=== PATIENT | female | born 1980 | race Caucasian/White ===

== ENCOUNTER → 2017-10-16 | Outpatient (CLI) | payer BC | END | disposition home or self-care (01) | LOC: LABWHC1 07:01 | PROVIDERS: ATTEND Otolaryngology | DX: J30.89 Other allergic rhinitis (principal) | CPT/HCPCS: 36415 ==

== ENCOUNTER → 2018-05-16 | Outpatient (CLI) | payer BC ==
--- NOTE | 2018-05-18 07:53 | MM ---
Reason for exam: screening (asymptomatic). Last mammogram was performed 2 years and 1 month ago. History: Patient is nulliparous. Took hormonal contraceptives for 5 years. Taking other hormone for 2 years. Physical Findings: A clinical breast exam by your physician is recommended on an annual basis and results should be correlated with mammographic findings. MG 3D Screening Mammo W/Cad Bilateral CC and MLO view(s) were taken. Prior study comparison: April 18, 2016, bilateral MG 3d screening mammo w/cad. April 15, 2015, bilateral MG screening mammo w CAD. The breast tissue is heterogeneously dense. This may lower the sensitivity of mammography. No suspicious abnormality. No significant changes when compared with prior studies. ASSESSMENT: Negative, BI-RAD 1 RECOMMENDATION: Routine screening mammogram of both breasts in 1 year.
== END | disposition home or self-care (01) ==
LOC: RADMAMWWP 06:55
PROVIDERS: ATTEND Obstetrics & Gynecology
DX: Z12.31 Encounter for screening mammogram for malignant neoplasm of breast (principal)
CPT/HCPCS: 77063; 77067

== ENCOUNTER 2018-07-24 06:55 | Day surgery (SDC) | payer BC ==
[2018-07-18 11:57] VITALS: BMI 21.2
--- NOTE | 2018-07-23 19:51 | P.HPOB ---
History of Present Illness H&P Date: 07/23/18 Chief Complaint: LAINE-2 This is a 38-year-old female 3 para 0 who presents for loop electrocautery excision procedure with colposcopy due to LAINE 2 found on colposcopy on 07/03/2018. Her last Pap smear in May 2018 was read as atypical squamous cells of undetermined significance with positive high risk HPV. She underwent colposcopy on 07/03/2018 and which pathology showed benign endocervical curettings and LAINE-2 on biopsy at 12:00. In light of these findings, the decision is made to proceed with loop electrocautery excision procedure with colposcopy. Gynecologic history: She denies any history of sexual transmitted diseases. She has been with the same partner for just over a year. She is currently on oral contraceptives for control. Obstetrical history: History of 3 miscarriages. Social history: She is . She works in accounting. Review of Systems Constitutional: Denies chills, Denies fever Eyes: denies blurred vision, denies pain Ears, nose, mouth and throat: Denies headache, Denies sore throat Cardiovascular: Denies chest pain, Denies shortness of breath Respiratory: Denies cough Gastrointestinal: Denies abdominal pain, Denies diarrhea, Denies nausea, Denies vomiting Genitourinary: Reports dysmenorrhea Menstruation: Reports menses variable Musculoskeletal: Reports low back pain Integumentary: Denies pruritus, Denies rash Neurological: Denies numbness, Denies weakness Psychiatric: Denies anxiety, Denies depression Endocrine: Denies fatigue, Denies weight change Past Medical History Past Medical History: Asthma, Hypertension Additional Past Medical History / Comment(s): Endometriosis History of Any Multi-Drug Resistant Organisms: None Reported Additional Past Surgical History / Comment(s): D&C; laparoscopy with left tubal repair and ablation of right endometriosis Past Anesthesia/Blood Transfusion Reactions: No Reported Reaction Past Psychological History: No Psychological Hx Reported Smoking Status: Never smoker Past Alcohol Use History: Occasional Past Drug Use History: None Reported - Past Family History Mother Additional Family Medical History / Comment(s): Stroke at age 55 Medications and Allergies Home Medications Medication Instructions Recorded Confirmed Type Losartan [Cozaar] 25 mg PO HS 07/18/18 07/18/18 History Montelukast [Singulair] 10 mg PO DAILY 07/18/18 07/18/18 History Norethindrone-E.estradiol-Iron 1 each PO DAILY 07/18/18 07/18/18 History [ Fe 24 Tablet] Allergies Allergy/AdvReac Type Severity Reaction Status Date / Time No Known Allergies Allergy Verified 07/18/18 11:41 Exam Osteopathic Statement: *. No significant issues noted on an osteopathic structural exam other than those noted in the History and Physical/Consult. HEENT: Within normal limits Heart: Regular rate and rhythm Lungs: Clear to auscultation bilaterally Abdomen: Soft, nontender Pelvic exam: Uterus is anteverted, nontender, with no adnexal masses or tenderness noted. Extremities: Negative Homans Assessment and Plan (1) LAINE II (cervical intraepithelial neoplasia II) Status: Acute Code(s): N87.1 - MODERATE CERVICAL DYSPLASIA SNOMED Code(s): 410691876 Plan: Proceed with loop electrocautery excision procedure with colposcopy. I have discussed the risks, benefits, and alternative therapies for the above- mentioned procedure and for both sedation/anesthesia as well as necessary blood products administration, if indicated, as they pertain to this patient. The patient has indicated her understanding and acceptance of the risks and procedures discussed.
[~2018-07-24 06:55] MED LIST: DEXAMETHASONE SOD PHOSPHATE 10 MG/ML 1 ML VIAL IV ONE; HYDROmorphone 0.5 MG/0.5 ML SYRINGE IVP PRN; LACTATED RINGERS 1,000 ML IV SCH; ONDANSETRON 4 MG/2 ML VIAL IVP ONE; Pre Op ABX Message 1 EACH MISC MISCELLANE ONE
[2018-07-24] MEDS ORDERED: LIDOCAINE 1% 20 ML VIAL (10MG/ML) FOR IV START INTRADERMA ONE (07:27)
[2018-07-24] MEDS ORDERED: LIDOCAINE 1% INJ 10MG/ML (20 ML MDV) ONE (08:11)
[2018-07-24] MEDS ORDERED: fentaNYL (PF) 50 MCG/ML 2 ML AMP ONE (08:11)
[2018-07-24] MEDS ORDERED: PROPOFOL 10 MG/ML 20 ML VIAL IV ONE (08:11)
[2018-07-24] MEDS ORDERED: MIDAZOLAM 2 MG/2 ML VIAL ONE (08:11)
[2018-07-24] MEDS ORDERED: FERRIC SUBSULFATE (MONSELS) JAR TOPICAL ONE (08:36)
[2018-07-24] MEDS ORDERED: BUPIVACAINE (PF) 0.5% 30 ML VIAL SQ ONE (08:36)
[2018-07-24] MEDS ORDERED: LIDOCAINE 1%-EPI 1:100,000 20 ML VIAL SQ ONE (08:36)
[2018-07-24] MEDS ORDERED: ACETIC ACID 15 DROPS/ML DROPS MISCELLANE ONE (08:36)
--- NOTE | 2018-07-24 08:50 | P.OP ---
Date of Procedure: 07/24/18 Preoperative Diagnosis: LAINE-2 Postoperative Diagnosis: Cervical dysplasia Procedure(s) Performed: Colposcopy with loop electrocautery excision procedure Anesthesia: other (LMA general) Surgeon: Flores Greene Estimated Blood Loss (ml): 10 Pathology: other (Ectocervix with 12 o'clock position marked with a black suture and 6 o'clock position marked with a white suture, endocervix is separate piece) Condition: stable Disposition: same day Indications for Procedure: This is a 38-year-old female 3 para 0 who presents for loop electrocautery excision procedure with colposcopy due to LAINE 2 found on colposcopy on 07/03/2018. Her last Pap smear in May 2018 was read as atypical squamous cells of undetermined significance with positive high risk HPV. She underwent colposcopy on 07/03/2018 and which pathology showed benign endocervical curettings and LAINE-2 on biopsy at 12:00. In light of these findings, the decision is made to proceed with loop electrocautery excision procedure with colposcopy. Operative Findings: Colposcopy is performed using a blue light and no specific abnormalities are visualized with either acetic acid or Lugol solution. Transition zone is seen entirely. Description of Procedure: The patient is taken to the operating room where she is placed in the dorsal lithotomy position. She is prepped and draped in the normal sterile fashion. Her bladder is drained with a catheter and then removed. Examination is performed under anesthesia. Uterus is found to be small, anteverted, with no adnexal masses noted. Next a bivalve coated speculum was placed in the patient's vagina. Colposcopy is then performed using a blue light. The cervix is swabbed with acetic acid. No abnormalities are visualized. Next the cervix is swabbed with Lugol solution. No abnormalities are noted. Transition zone is seen entirely. Next a spinal needle was used to inject a 50-50 mixture of 1% lidocaine with epinephrine and half percent Marcaine. Approximately 7 mL are injected using a spinal needle circumferentially around the cervix. Next the large loop was used with 35 W of cutting power to swipe from left to right to remove the upper border of the transition zone. The same procedure is used to swipe from left to right removing the lower border. Next a small loop was used to remove the endocervix. Next a ball-tipped cautery was used to cauterize the bed left behind. Excellent hemostasis was noted. Next the cervix is swabbed with Monsel solution for hemostasis. The 12:00 ectocervix piece is marked with a black suture and then the 6:00 piece is marked with a white suture. The endocervix is not marked. All sponge and needle counts are correct. The patient is then taken to recovery room in stable condition.
[2018-07-24 08:58] VITALS: TEMP 98.1
[2018-07-24 09:03] VITALS: RESP 16
[2018-07-24 10:20] VITALS: BP 123/85; PULSE 75
== END 2018-07-24 10:47 | disposition home or self-care (01) ==
LOC: OR 06:55
PROVIDERS: ATTEND Obstetrics & Gynecology
DX: N87.1 Moderate cervical dysplasia (principal); J45.909 Unspecified asthma, uncomplicated; Z79.51 Long term (current) use of inhaled steroids; Z79.899 Other long term (current) drug therapy; Z79.890 Hormone replacement therapy
CPT/HCPCS: 81025; 88307; 57460; J2250; J1100; J2405; J2001; J3010; J2704

== ENCOUNTER → 2019-06-27 | Outpatient (CLI) | payer OTHER ==
--- NOTE | 2019-06-27 14:39 | MM ---
Reason for exam: screening (asymptomatic). Last mammogram was performed 1 year and 1 month ago. History: Patient is nulliparous. Took hormonal contraceptives for 5 years. Taking other hormone for 2 years. Physical Findings: A clinical breast exam by your physician is recommended on an annual basis and results should be correlated with mammographic findings. MG 3D Screening Mammo W/Cad Bilateral CC and MLO view(s) were taken. Prior study comparison: May 16, 2018, bilateral MG 3d screening mammo w/cad. April 18, 2016, bilateral MG 3d screening mammo w/cad. The breast tissue is heterogeneously dense. This may lower the sensitivity of mammography. New nodular density inner right CC view 6.4cm from nipple. This finding is changed when compared with previous exams. ASSESSMENT: Incomplete: need additional imaging evaluation, BI-RAD 0 RECOMMENDATION: Special view mammogram of the right breast. If lesion persists on supplemental views, image directed ultrasound is recommended. [facility] will attempt to contact patient to return for supplemental views and ultrasound if indicated.
== END ==
LOC: RADMAMWWP 06:56
PROVIDERS: ATTEND Obstetrics & Gynecology
DX: Z12.31 Encounter for screening mammogram for malignant neoplasm of breast (principal)
CPT/HCPCS: 77063; 77067

== ENCOUNTER → 2019-07-05 | Outpatient (CLI) | payer OTHER ==
--- NOTE | 2019-07-05 10:00 | MM ---
Reason for exam: additional evaluation requested from abnormal screening. Last mammogram was performed less than 1 month ago. History: Patient is nulliparous. Taking hormonal contraceptives for 6 years. Taking other hormone for 2 years. Physical Findings: Nurse did not find any significant physical abnormalities on exam. MG 3D Work Up W/Cad RT Spot compression CC, spot compression MLO, and ML view(s) were taken of the right breast. Prior study comparison: June 27, 2019, bilateral MG 3d screening mammo w/cad. May 16, 2018, bilateral MG 3d screening mammo w/cad. The breast tissue is heterogeneously dense. This may lower the sensitivity of mammography. There is no discrete abnormality including area of concern medial CC. No significant new findings when compared with previous films. These results were verbally communicated with the patient and result sheet given to the patient on 07/05/19. ASSESSMENT: Benign, BI-RAD 2 RECOMMENDATION: Routine screening mammogram of both breasts.
== END | disposition home or self-care (01) ==
LOC: RADMAMWWP 08:39
PROVIDERS: ATTEND Obstetrics & Gynecology
DX: R92.8 Other abnormal and inconclusive findings on diagnostic imaging of breast (principal)
CPT/HCPCS: 77061; 77065

== ENCOUNTER → 2020-09-18 | Outpatient (CLI) | payer OTHER ==
--- NOTE | 2020-09-21 11:16 | MM ---
Reason for exam: screening (asymptomatic). Last mammogram was performed 1 year and 2 months ago. History: Patient is nulliparous. Taking hormonal contraceptives for 6 years. Taking other hormone for 2 years. Physical Findings: A clinical breast exam by your physician is recommended on an annual basis and results should be correlated with mammographic findings. MG 3D Screening Mammo W/Cad Bilateral CC and MLO view(s) were taken. Prior study comparison: July 05, 2019, right breast MG 3d work up w/cad RT. June 27, 2019, bilateral MG 3d screening mammo w/cad. The breast tissue is heterogeneously dense. This may lower the sensitivity of mammography. There is no discrete abnormality. No significant changes when compared with prior studies. ASSESSMENT: Negative, BI-RAD 1 RECOMMENDATION: Routine screening mammogram of both breasts in 1 year.
== END | disposition home or self-care (01) ==
LOC: RADMAMWWP 09:02
PROVIDERS: ATTEND Obstetrics & Gynecology
DX: Z12.31 Encounter for screening mammogram for malignant neoplasm of breast (principal)
CPT/HCPCS: 77063; 77067

== ENCOUNTER → 2022-10-05 | Outpatient (CLI) | payer SELFPAY ==
--- NOTE | 2022-10-06 10:07 | MM ---
Reason for Exam: Screening (asymptomatic). Last mammogram was performed 2 year(s) and 0 month(s) ago. Patient History: Menarche at age 8. Patient has no children. Currently using Hormonal Contraceptives, for 6 years. Paternal grandmother had breast cancer at or over age 50. Paternal aunt had breast cancer at or over age 50. Paternal cousin had breast cancer. Last menstrual period: 10/05/2022 Risk Values: Zee 5 year model risk: 0.9%. NCI Lifetime model risk: 11.7%. Prior Study Comparison: 06/27/2019 Bilateral Screening Mammogram, [facility]. 07/05/2019 Right Diagnostic Mammogram, [facility]. 09/18/2020 Bilateral Screening Mammogram, [facility]. Tissue Density: The breast tissue is heterogeneously dense. This may lower the sensitivity of mammography. Findings: Analyzed By CAD. There is no suspicious group of microcalcifications or new suspicious mass in either breast. Overall Assessment: Negative, BI-RAD 1 Management: Screening Mammogram of both breasts in [address] [facility] will attempt to contact patient to return for supplemental views and ultrasound if indicated. Patient should continue monthly self-breast exams. A clinical breast exam by your physician is recommended on an annual basis. This exam should not preclude additional follow-up of suspicious palpable abnormalities. Note on Zee scores and lifetime risk: 1. A Zee score greater than 3% is considered moderate risk. If this is the case, consider specialist referral to assess eligibility for a risk reducing agent. 2. If overall lifetime risk for the development of breast cancer is 20% or higher, the patient may qualify for future screening with alternating mammogram and breast MRI. Electronically signed and approved by: Juan Mcnally DO
== END | disposition home or self-care (01) ==
LOC: RADMAMWWP 07:24
PROVIDERS: ATTEND Obstetrics & Gynecology
DX: Z12.31 Encounter for screening mammogram for malignant neoplasm of breast (principal); Z80.3 Family history of malignant neoplasm of breast
CPT/HCPCS: 77067

== ENCOUNTER → 2024-09-30 | Outpatient (CLI) | payer OTHER ==
--- NOTE | 2024-09-30 09:07 | MM ---
Reason for Exam: Screening (asymptomatic). Last mammogram was performed 2 year(s) and 0 month(s) ago. Patient History: Menarche at age 8. Patient has no children. Currently using Hormonal Contraceptives, for 6 years. Paternal grandmother had breast cancer at or over age 50. Paternal aunt had breast cancer at or over age 50. Paternal cousin had breast cancer. Risk Values: Zee 5 year model risk: 1.0%. NCI Lifetime model risk: 11.4%. Prior Study Comparison: 07/05/2019 Right Diagnostic Mammogram, [facility]. 09/18/2020 Bilateral Screening Mammogram, [facility]. 10/05/2022 Bilateral MG screening mammo w CAD, [facility]. Tissue Density: The breasts are heterogeneously dense, which may obscure small masses. Findings: Analyzed By CAD. Right breast: There is no suspicious group of microcalcifications or new suspicious mass. Left breast: There is no suspicious group of microcalcifications or new suspicious mass. Overall Assessment: Negative, BI-RAD 1 Management: Screening Mammogram of both breasts in [address] [facility] will attempt to contact patient to return for supplemental views and ultrasound if indicated. Patient should continue monthly self-breast exams. A clinical breast exam by your physician is recommended on an annual basis. This exam should not preclude additional follow-up of suspicious palpable abnormalities. Note on Zee scores and lifetime risk: 1. A Zee score greater than 3% is considered moderate risk. If this is the case, consider specialist referral to assess eligibility for a risk reducing agent. 2. If overall lifetime risk for the development of breast cancer is 20% or higher, the patient may qualify for future screening with alternating mammogram and breast MRI. [facility], , 09/30/2024 9:04 AM. Electronically signed and approved by: Juan Mcnally DO
== END | disposition home or self-care (01) ==
LOC: RADMAMWWP 07:38
PROVIDERS: ATTEND Internal Medicine
DX: Z12.31 Encounter for screening mammogram for malignant neoplasm of breast (principal); R92.333 Mammographic heterogeneous density, bilateral breasts; Z92.0 Personal history of contraception; Z80.3 Family history of malignant neoplasm of breast
CPT/HCPCS: 77063; 77067